=== PATIENT | female | born 1965 | race Two or more races ===

== ENCOUNTER 2016-06-30 08:44 | Emergency (ER) | payer OTHER ==
[2016-06-30 09:45] LABS: ABSOLUTE NEUTROPHIL COUNT 2.4 K/mm3 (1.8-7.7); BASO % 0.5 % (0.2-1.0); EOS # 0.6 (0.0-0.5); EOS % 10.9 % (0.9-2.9); HEMATOCRIT 39.3 % (37.0-47.0); HEMOGLOBIN 12.4 gm/l (12.0-16.0); IMM NEUT% 0.4 % (0-1); LYMPH # 2.1 (1.0-4.8); LYMPH % 37.3 % (15-45); MEAN CELL VOLUME 83.4 fl (81.0-99.0); MEAN CORPUSCULAR HEMOGLOBIN 26.3 pg (27.0-31.0); MEAN CORPUSCULAR HGB CONC 31.6 g/dl (33.0-37.0); MEAN PLATELET VOLUME 10.4 fl (7.4-10.4); MONO # 0.5 (0.0-0.8); MONO % 8.4 % (4-12); NEUT % 42.5 % (43-75); PLATELET COUNT 340 K/mm3 (130-400)
[2016-06-30 09:53] LABS: URINE APPEARANCE CLEAR; URINE BILIRUBIN NEGATIVE (NEGATIVE); URINE BLOOD NEGATIVE (NEGATIVE); URINE COLOR YELLOW; URINE GLUCOSE (UA) NEGATIVE (NEGATIVE); URINE LEUKOCYTE ESTERASE NEGATIVE (NEGATIVE); URINE NITRITE NEGATIVE (NEGATIVE); URINE PROTEIN NEGATIVE (NEGATIVE); URINE UROBILINOGEN NORMAL (0-1 mg/dl)
[2016-06-30 09:58] LABS: TROPONIN I < 0.01 ng/ml (0.0-0.06)
[2016-06-30 09:59] LABS: ALB/GLOB RATIO 1.3 (>1.0); ALBUMIN 4.5 gm/dL (3.5-5.7); CALCIUM 9.8 mg/dL (8.6-10.3)
[2016-06-30 10:01] LABS: CKMB ISOENZYME 2.2 ng/ml (0.6-6.3)
--- NOTE | 2016-06-30 10:18 | RAD ---
History: Left-sided chest pain. Comparison: 06/28/2016. Technique: 2 views Findings: The soft tissue and bony structures are unremarkable. The heart size is appropriate. No infiltrate, effusion or pneumothorax is observed. The hilar and mediastinal structures are normal. Impression: 1. A negative 2 view chest
== END 2016-06-30 12:58 | disposition home or self-care (01) ==
LOC: ED 08:44
DX: R07.9 Chest pain, unspecified (principal)